=== PATIENT | male | born 1995 | race Caucasian/White ===

== ENCOUNTER 2018-05-28 23:27 | Emergency (ER) | payer SELFPAY, OTHER ==
[2018-05-29] MEDS: LORAZEPAM 1 MG TAB PO (00:54)
== END 2018-05-29 01:49 | disposition home or self-care (01) ==
LOC: FTE 23:27
DX: F41.9 Anxiety disorder, unspecified (principal); R06.02 Shortness of breath
CPT/HCPCS: 71046; 93005; 99284-25